=== PATIENT | female | born 1950 | race Caucasian/White ===

== ENCOUNTER 2024-11-28 10:08 | Inpatient (IN) ==
[2024-11-28 12:01] LABS: Basophils # (Auto) 0.03 K/mcL (0.00-0.30); Basophils % (Auto) 0.4 % (0.0-2.0); Eosinophils # (Auto) 0.01 K/mcL (0.00-0.70); Eosinophils % (Auto) 0.1 % (0.0-7.0); Hematocrit 41.3 % (34.1-44.9); Hemoglobin 13.3 g/dL (11.2-15.7); Lymphocytes # (Auto) 2.15 K/mcL (1.50-4.80); Lymphocytes % (Auto) 30.5 % (15.5-49.0); Mean Cell Volume 89.4 fL (80.0-100.0); Mean Corpuscular HGB Conc 32.2 g/dL (31.0-36.0); Mean Platelet Volume 9.5 fL (8.8-12.5); Monocytes # (Auto) 0.58 K/mcL (0.10-0.90); Monocytes % (Auto) 8.2 % (1.0-12.0); Neutrophils % (Auto) 60.5 % (38.0-78.0); Platelet Count 281 K/mcL (140-440); RBC 4.62 M/mcL (3.59-5.38); Red Cell Distribution Width 13.2 % (11.5-14.5); WBC 7.1 K/mcL (4.5-11.0)
[2024-11-28 12:12] LABS: Appearance,Urine Clear (Clear); Bilirubin,Urine Negative (Negative); Color,Urine Yellow; Glucose,Urine (UA) Negative (Negative); Ketones,Urine Negative (Negative); Leukocyte Esterase,Urine Trace /uL (Negative); Nitrate,Urine Negative (Negative); PH,Urine 6.5 (5.0-9.0); Protein,Urine Negative (Negative); Urine Blood Negative ery/mcL (Negative); Urine RBC 0 /hpf (0-3); Urine Squamous Epithelial Cell 5 /hpf (0-4); Urine WBC 4 /hpf (0-4); Urobilinogen,Urine Normal
[2024-11-28 12:25] LABS: ALT/SGPT 21 U/L (<40); AST/SGOT 28 U/L (<32); Albumin 4.1 gm/dL (3.2-5.2); Albumin/Globulin Ratio 1.4 (1.0-2.3); Alkaline Phosphatase 78 U/L (39-117); Bilirubin,Total 0.5 mg/dL (0.1-1.0); Blood Urea Nitrogen 22 mg/dL (8-23); Calcium 9.5 mg/dL (8.6-10.4); Carbon Dioxide 25 mmol/L (22-30); Chloride 104 mmol/L (96-108); Globulin 2.9 gm/dL (2.2-3.7); Glomerular Filtration Rate 49; Glucose 101 mg/dL (70-105); Sodium 142 mmol/L (133-145); Thyroid Stimulating Hormone 8.81 uIU/mL (0.27-5.01)
[2024-11-28 13:22] LABS: Free T4 (Free Thyroxine) 0.66 ng/dL (0.93-1.70)
[2024-11-28] MEDS ORDERED: POTASSIUM CHLORIDE 20 MEQ TABLET PO PRN ×2 (18:56)
[2024-11-28] MEDS ORDERED: ENALAPRILAT 1.25 MG/ML VIAL IV PRN (18:56)
[2024-11-28] MEDS ORDERED: MAGNESIUM SULFATE 2 GM/50 ML BAG IV PRN (18:56)
[2024-11-28] MEDS ORDERED: METOCLOPRAMIDE 10 MG/2 ML VIAL IV PRN (18:56)
[2024-11-28] MEDS ORDERED: POTASSIUM CHLORIDE 40 MEQ in DEXTROSE 5% IN WATER 500 ML IV PRN (18:56)
[2024-11-28] MEDS ORDERED: SENNOSIDES 1 TABLET PO PRN (18:56)
[2024-11-28] MEDS ORDERED: IPRATROPIUM/ALBUTEROL 3 ML AMPUL.NEB NEB PRN (18:56)
[2024-11-28] MEDS ORDERED: ONDANSETRON 4 MG/2 ML VIAL IV PRN (18:56)
[2024-11-28] MEDS ORDERED: LABETALOL HCL 20 MG/4 ML VIAL IV PRN (18:56)
[2024-11-28] MEDS ORDERED: LORazepam 2 MG/ML VIAL IV PRN (18:56)
[2024-11-28] MEDS: ACETAMINOPHEN 325 MG TABLET PO PRN (20:16)
[2024-11-28] MEDS: diphenhydrAMINE 25 MG CAPSULE PO PRN (20:16)
[2024-11-28] MEDS: MELATONIN 3 MG TABLET PO SCH (20:16)
[2024-11-28] MEDS: LISINOPRIL 10 MG TABLET PO SCH (20:16)
[2024-11-28] MEDS: LEVOTHYROXINE 50 MCG TABLET PO SCH (20:17)
[2024-11-28] MEDS: 0.9 % SODIUM CHLORIDE 10 ML SYRINGE IV SCH (20:18)
[2024-11-28] MEDS: DOCUSATE SODIUM 100 MG CAPSULE PO SCH (20:18)
[2024-11-28 22:08] LABS: Creatine Kinase 378 U/L (24-170)
[2024-11-29] MEDS: hydrOXYzine 25 MG TABLET PO PRN (04:22)
[2024-11-29 07:31] LABS: ALT/SGPT 21 U/L (<40); AST/SGOT 26 U/L (<32); Albumin 3.8 gm/dL (3.2-5.2); Albumin/Globulin Ratio 1.4 (1.0-2.3); Alkaline Phosphatase 71 U/L (39-117); Bilirubin,Direct 0.2 mg/dL (<0.3); Bilirubin,Total 0.5 mg/dL (0.1-1.0); Blood Urea Nitrogen 25 mg/dL (8-23); Calcium 9.2 mg/dL (8.6-10.4); Carbon Dioxide 24 mmol/L (22-30); Chloride 106 mmol/L (96-108); Globulin 2.7 gm/dL (2.2-3.7); Glomerular Filtration Rate 44; Glucose 110 mg/dL (70-105); Lactate Dehydrogenase 186 U/L (135-225); Phosphorous 4.1 mg/dL (2.5-4.5); Sodium 143 mmol/L (133-145); Triglycerides 139 mg/dL (<150); Uric Acid 6.3 mg/dL (2.5-8.0)
[2024-11-29] MEDS: 0.9 % SODIUM CHLORIDE 1,000 ML IV ONE (08:23)
[2024-11-29] MEDS: ENOXAPARIN 40 MG/0.4 ML SYRINGE SQ SCH (08:27)
[2024-11-30 07:04] LABS: Blood Urea Nitrogen 33 mg/dL (8-23); Calcium 8.6 mg/dL (8.6-10.4); Carbon Dioxide 23 mmol/L (22-30); Chloride 109 mmol/L (96-108); Glomerular Filtration Rate 44; Glucose 125 mg/dL (70-105); Potassium 4.1 mmol/L (3.3-5.1); Sodium 143 mmol/L (133-145)
[2024-12-01 06:14] LABS: Blood Urea Nitrogen 31 mg/dL (8-23); Calcium 8.9 mg/dL (8.6-10.4); Carbon Dioxide 23 mmol/L (22-30); Chloride 108 mmol/L (96-108); Glomerular Filtration Rate 44; Glucose 143 mg/dL (70-105); Potassium 4.1 mmol/L (3.3-5.1); Sodium 142 mmol/L (133-145)
[2024-12-01] MEDS: POLYETHYLENE GLYCOL 3350 17 GM PACKET PO PRN (09:25)
== END 2024-12-02 12:15 | DRG 645 ==
LOC: MEDSUR 10:08 → ED 10:08 → MEDSUR 18:49 → MERGE 11-29 10:32
PROVIDERS: ADMIT Internal Medicine; ATTEND Internal Medicine